=== PATIENT | female | born 1960 | race African-American/Black ===

== ENCOUNTER 2017-11-28 09:51 | Inpatient (IN) | payer SELFPAY ==
[2017-11-28] MEDS ORDERED: CONTRAST GIVEN. MC (10:30)
[2017-11-28 10:32] LABS: BILIRUBIN,URINE NEGATIVE (NEG); CLARITY,URINE CLEAR; COLOR,URINE YELLOW; GLUCOSE,URINE NEGATIVE (NEG); NITRITE,URINE NEGATIVE (NEG); PH,URINE 8.5; PROTEIN,URINE 30 mg/dL (NEG-TRACE); UROBILINOGEN,URINE 0.2 mg/dL (0.2 mg/dL)
[2017-11-28 10:35] LABS: ADD MAN DIFF? NO
[2017-11-28] MEDS: IV NORMAL SALINE 1000ML BAG 1,000 ML IV (10:36)
[2017-11-28] MEDS: ONDANSETRON PF 4 MG/2 ML VIAL. IV ×2 (10:38→16:11)
[2017-11-28] MEDS: MORPHINE SULFATE 4 MG/ML DISP.SYRIN. IV ×3 (10:39→18:16)
[2017-11-28 10:48] LABS: BASO # 0.1 x10^3/uL (0.0-0.2); BASO % 1 % (0-3); EOS % 0 % (0-3); HEMATOCRIT 31.7 % (36.0-47.0); HEMOGLOBIN 10.4 g/dL (12.0-15.5); LYMPH # 0.5 x10^3/uL (1.0-4.8); LYMPH % 9 % (24-48); MEAN CORPUSCULAR HEMOGLOBIN 24 pg (25-35); MEAN CORPUSCULAR HGB CONC 33 g/dL (31-37); MEAN CORPUSCULAR VOLUME 74 fL (79-100); MONO # 0.7 x10^3/uL (0.0-1.1); MONO % 13 % (0-9); NEUT # 3.8 x10^3uL (1.8-7.7); NEUT % 76 % (31-73); RED BLOOD COUNT 4.27 x10^6/uL (3.50-5.40); RED CELL DISTRIBUTION WIDTH 22.1 % (11.5-14.5)
[2017-11-28] MEDS: IOHEXOL 300 MG/ML 100ML VIAL. IV (11:00)
[2017-11-28 11:02] LABS: ANION GAP 6 (6-14); BLOOD UREA NITROGEN 12 mg/dL (7-20); CALCIUM 9.5 mg/dL (8.5-10.1); CARBON DIOXIDE 32 mmol/L (21-32); CHLORIDE 102 mmol/L (98-107); CREATININE 0.9 mg/dL (0.6-1.0); GFR 64.8; GLUCOSE 119 mg/dL (70-99); POTASSIUM 3.8 mmol/L (3.5-5.1); SODIUM 140 mmol/L (136-145)
[2017-11-28 11:06] LABS: PLATELET COUNT 1090 x10^3/uL (140-400)
[2017-11-28 11:08] LABS: ALBUMIN 4.3 g/dL (3.4-5.0); ALK PHOS 89 U/L (46-116); ALT (SGPT) 18 U/L (14-59); AST (SGOT) 17 U/L (15-37); DIRECT BILIRUBIN 0.1 mg/dL (0.0-0.2); LIPASE 178 U/L (73-393); TOTAL BILIRUBIN 0.3 mg/dL (0.2-1.0); TOTAL PROTEIN 8.2 g/dL (6.4-8.2)
[2017-11-28 11:09] LABS: SQUAMOUS EPITHELIAL CELL,UR MOD /LPF
[2017-11-28 11:10] LABS: BACTERIA,URINE FEW /HPF (0-FEW); RBC,URINE 0 /HPF (0-2); WBC,URINE OCC /HPF (0-4)
[2017-11-28 11:34] LABS: TROPONINI < 0.017 ng/mL (0.000-0.055)
[2017-11-28] MEDS: fentaNYL PF VIAL 100 MCG/2 ML VIAL IV (12:28)
[2017-11-28] MEDS: IV RINGERS,LACTATED 1000ML 1,000 ML IV (16:04)
[2017-11-28] MEDS: cefTRIAXone IV Push 1 GM VIAL. IVP (17:04)
[2017-11-28] MEDS ORDERED: PROCHLORPERAZINE 10 MG/2 ML VIAL. IM (18:15)
[2017-11-29] MEDS: ONDANSETRON PF 4 MG/2 ML VIAL. IV (03:46)
[2017-11-29] MEDS: MORPHINE SULFATE 4 MG/ML DISP.SYRIN. IV ×2 (03:46→06:21)
[2017-11-29 04:04] LABS: ADD MAN DIFF? NO
[2017-11-29 04:18] LABS: BASO # 0.1 x10^3/uL (0.0-0.2); BASO % 1 % (0-3); EOS % 0 % (0-3); HEMOGLOBIN 9.5 g/dL (12.0-15.5); LYMPH # 0.4 x10^3/uL (1.0-4.8); LYMPH % 6 % (24-48); MEAN CORPUSCULAR HEMOGLOBIN 25 pg (25-35); MEAN CORPUSCULAR HGB CONC 34 g/dL (31-37); MEAN CORPUSCULAR VOLUME 74 fL (79-100); MONO # 0.8 x10^3/uL (0.0-1.1); MONO % 11 % (0-9); NEUT % 83 % (31-73); PLATELET COUNT 894 x10^3/uL (140-400); RED BLOOD COUNT 3.79 x10^6/uL (3.50-5.40); RED CELL DISTRIBUTION WIDTH 21.5 % (11.5-14.5); WHITE BLOOD COUNT 7.2 x10^3/uL (4.0-11.0)
[2017-11-29 05:16] LABS: ALBUMIN 3.4 g/dL (3.4-5.0); ALBUMIN/GLOBULIN RATIO 0.9 (1.0-1.7); ALK PHOS 80 U/L (46-116); ALT (SGPT) 22 U/L (14-59); ANION GAP 5 (6-14); AST (SGOT) 20 U/L (15-37); BLOOD UREA NITROGEN 11 mg/dL (7-20); BUN/CREATININE RATIO 14 (6-20); CALCIUM 8.8 mg/dL (8.5-10.1); CARBON DIOXIDE 31 mmol/L (21-32); CHLORIDE 104 mmol/L (98-107); CREATININE 0.8 mg/dL (0.6-1.0); GFR 89.8; GLUCOSE 120 mg/dL (70-99); POTASSIUM 4.2 mmol/L (3.5-5.1); SODIUM 140 mmol/L (136-145); TOTAL BILIRUBIN 0.3 mg/dL (0.2-1.0); TOTAL PROTEIN 7.1 g/dL (6.4-8.2)
[2017-11-29] MEDS ORDERED: SURGICEL HEMOSTAT 2X3 EACH. (06:21)
[2017-11-29] MEDS: PROCHLORPERAZINE 10 MG/2 ML VIAL. IV (08:50)
[2017-11-29] MEDS ORDERED: ROCURONIUM 50 MG/5 ML VIAL. (09:20)
[2017-11-29] MEDS ORDERED: SEVOFLURANE 61 TO 120 MINUTES. IH (09:21)
[2017-11-29] MEDS ORDERED: KETOROLAC 30 MG/ML INJ FOR OR. INJ (09:21)
[2017-11-29] MEDS ORDERED: DEXAMETHASONE SOD PHOS 20 MG/5 ML VIAL. (09:21)
[2017-11-29] MEDS ORDERED: fentaNYL PF VIAL 100 MCG/2 ML VIAL ×2 (09:21→12:51)
[2017-11-29] MEDS ORDERED: PROPOFOL 20 ML IV (09:21)
[2017-11-29] MEDS ORDERED: ONDANSETRON PF 4 MG/2 ML VIAL. (09:21)
[2017-11-29] MEDS: IV RINGERS,LACTATED 1000ML 1,000 ML IV ×3 (09:24→23:00)
[2017-11-29] MEDS ORDERED: MORPHINE SULFATE 2 MG/ML DISP.SYRIN. IV (09:30)
[2017-11-29] MEDS ORDERED: ONDANSETRON PF 4 MG/2 ML VIAL. IV ×2 (09:30→11:45)
[2017-11-29] MEDS ORDERED: PROCHLORPERAZINE 10 MG/2 ML VIAL. IV (09:30)
[2017-11-29] MEDS ORDERED: fentaNYL PF VIAL 100 MCG/2 ML VIAL IV (09:30)
[2017-11-29] MEDS ORDERED: LIDOCAINE 1% PF 2 ML VIAL. ID (09:30)
[2017-11-29] MEDS ORDERED: NEOSTIGMINE METHYLSULFATE 5 MG/5 ML SYRINGE. (10:00)
[2017-11-29] MEDS ORDERED: GLYCOPYRROLATE 1 MG/5 ML VIAL. ×2 (10:01→12:35)
[2017-11-29] MEDS: HEPARIN 1,000 UNIT in IV NORMAL SALINE 1,000 ML for SURG PERIOP IRR (10:50)
[2017-11-29] MEDS: BUPIVACAINE-EPI 0.5%-1:200000 50 ML VIAL. (10:50)
[2017-11-29] MEDS: IOHEXOL 300 MG/ML 100ML VIAL. (11:11)
[2017-11-29] MEDS: BISACODYL 10 MG SUPP.RECT. (11:37)
[2017-11-29] MEDS ORDERED: SUCCINYLCHOLINE 200 MG/10 ML VIAL. (11:39)
[2017-11-29] MEDS ORDERED: DEXTROSE 50% 25 GM / 50ML DISP.SYRIN. IV (11:45)
[2017-11-29] MEDS ORDERED: 0.9 % SODIUM CHLORIDE 10 ML DISP.SYRIN. IV (11:45)
[2017-11-29] MEDS ORDERED: NEOSTIGMINE 10 MG/10 ML VIAL. (12:35)
[2017-11-29] MEDS ORDERED: PHENYLEPHRINE in 0.9% NACL PF 1 MG/10 ML SYRINGE. IV (12:46)
[2017-11-29] MEDS: fentaNYL PF VIAL 100 MCG/2 ML VIAL IV ×3 (12:55→19:32)
[2017-11-29] MEDS: HYDROcodone/APAP 5/325MG 1 TAB TABLET PO ×2 (14:17→18:07)
[2017-11-29] MEDS: KETOROLAC 15 MG/ML VIAL. IV (17:57)
[2017-11-29] MEDS: cefTRIAXone IV Push 1 GM VIAL. IVP (18:07)
[2017-11-29] MEDS: DOCUSATE SODIUM 100 MG CAPSULE. PO (19:45)
[2017-11-30] MEDS: fentaNYL PF VIAL 100 MCG/2 ML VIAL IV ×6 (04:31→23:19)
[2017-11-30] MEDS: oxyCODONE/APAP 5/325 1 TAB TABLET PO ×2 (04:52→09:27)
[2017-11-30 05:35] LABS: ALBUMIN 3.2 g/dL (3.4-5.0); ALBUMIN/GLOBULIN RATIO 0.9 (1.0-1.7); ALK PHOS 75 U/L (46-116); ALT (SGPT) 36 U/L (14-59); ANION GAP 7 (6-14); AST (SGOT) 35 U/L (15-37); BLOOD UREA NITROGEN 10 mg/dL (7-20); BUN/CREATININE RATIO 11 (6-20); CALCIUM 8.4 mg/dL (8.5-10.1); CARBON DIOXIDE 29 mmol/L (21-32); CHLORIDE 102 mmol/L (98-107); CREATININE 0.9 mg/dL (0.6-1.0); GFR 78.4; GLUCOSE 113 mg/dL (70-99); POTASSIUM 4.2 mmol/L (3.5-5.1); SODIUM 138 mmol/L (136-145); TOTAL BILIRUBIN 0.3 mg/dL (0.2-1.0); TOTAL PROTEIN 6.6 g/dL (6.4-8.2)
[2017-11-30 05:39] LABS: BASO % 1 % (0-3); EOS % 0 % (0-3); HEMATOCRIT 25.8 % (36.0-47.0); HEMOGLOBIN 8.6 g/dL (12.0-15.5); LYMPH # 0.3 x10^3/uL (1.0-4.8); LYMPH % 3 % (24-48); MEAN CORPUSCULAR HEMOGLOBIN 25 pg (25-35); MEAN CORPUSCULAR HGB CONC 34 g/dL (31-37); MEAN CORPUSCULAR VOLUME 75 fL (79-100); MONO # 0.8 x10^3/uL (0.0-1.1); MONO % 9 % (0-9); NEUT # 7.4 x10^3uL (1.8-7.7); NEUT % 87 % (31-73); RED BLOOD COUNT 3.43 x10^6/uL (3.50-5.40); WHITE BLOOD COUNT 8.5 x10^3/uL (4.0-11.0)
[2017-11-30 05:41] LABS: PLATELET COUNT 915 x10^3/uL (140-400)
[2017-11-30 05:42] LABS: ADD MAN DIFF? YES
[2017-11-30 05:43] LABS: % SAT IRON 15 % (15-34); IRON,SERUM 35 ug/dL (50-170)
[2017-11-30 08:33] LABS: FERRITIN 105 ng/mL (8-252)
[2017-11-30 08:37] LABS: RETIC COUNT 1.1 % (0.5-2.5)
[2017-11-30] MEDS: IV RINGERS,LACTATED 1000ML 1,000 ML IV ×2 (09:00→19:00)
[2017-11-30 09:12] LABS: % BANDS 1 % (0-9); % LYMPHS 10 % (24-48); % MONOS 4 % (0-10); % SEGS 85 % (35-66); PLT ESTIMATE INCREASED (ADEQUATE)
[2017-11-30 09:13] LABS: ANISOCYTOSIS PRESENT
[2017-11-30] MEDS: DOCUSATE SODIUM 100 MG CAPSULE. PO ×2 (09:26→21:11)
[2017-11-30] MEDS: ONDANSETRON PF 4 MG/2 ML VIAL. IV (13:05)
[2017-11-30] MEDS: cefTRIAXone IV Push 1 GM VIAL. IVP (17:30)
[2017-12-01] MEDS: IV RINGERS,LACTATED 1000ML 1,000 ML IV ×3 (03:30→19:50)
[2017-12-01] MEDS: HYDROcodone/APAP 5/325MG 1 TAB TABLET PO (04:34)
[2017-12-01] MEDS: ONDANSETRON PF 4 MG/2 ML VIAL. IV ×2 (08:24→15:24)
[2017-12-01] MEDS: fentaNYL PF VIAL 100 MCG/2 ML VIAL IV ×4 (08:30→23:52)
[2017-12-01] MEDS: DOCUSATE SODIUM 100 MG CAPSULE. PO ×2 (08:30→20:55)
[2017-12-01 09:28] LABS: ADD MAN DIFF? NO
[2017-12-01 09:37] LABS: BASO % 1 % (0-3); EOS % 0 % (0-3); HEMATOCRIT 24.4 % (36.0-47.0); HEMOGLOBIN 8.3 g/dL (12.0-15.5); LYMPH # 2.6 x10^3/uL (1.0-4.8); LYMPH % 61 % (24-48); MEAN CORPUSCULAR HEMOGLOBIN 25 pg (25-35); MEAN CORPUSCULAR HGB CONC 34 g/dL (31-37); MEAN CORPUSCULAR VOLUME 73 fL (79-100); MONO # 0.2 x10^3/uL (0.0-1.1); MONO % 5 % (0-9); NEUT # 1.5 x10^3uL (1.8-7.7); NEUT % 34 % (31-73); PLATELET COUNT 881 x10^3/uL (140-400); RED BLOOD COUNT 3.32 x10^6/uL (3.50-5.40); RED CELL DISTRIBUTION WIDTH 20.8 % (11.5-14.5); WHITE BLOOD COUNT 4.4 x10^3/uL (4.0-11.0)
[2017-12-01] MEDS: cefTRIAXone IV Push 1 GM VIAL. IVP (17:16)
[2017-12-01] MEDS: ENOXAPARIN 40 MG/0.4 ML SYRINGE. SQ (20:56)
[2017-12-01] MEDS: LACTOBACILLUS RHAMNOSUS GG 1 CAPSULE. PO ×2 (21:00→21:18)
[2017-12-02] MEDS: fentaNYL PF VIAL 100 MCG/2 ML VIAL IV (05:16)
[2017-12-02] MEDS: IV RINGERS,LACTATED 1000ML 1,000 ML IV ×2 (05:25→15:12)
[2017-12-02] MEDS: LACTOBACILLUS RHAMNOSUS GG 1 CAPSULE. PO ×2 (08:31→21:15)
[2017-12-02] MEDS: DOCUSATE SODIUM 100 MG CAPSULE. PO ×2 (08:31→21:15)
[2017-12-02] MEDS: oxyCODONE/APAP 5/325 1 TAB TABLET PO ×3 (08:31→19:39)
[2017-12-02] MEDS: KETOROLAC 15 MG/ML VIAL. IV ×2 (08:31→15:04)
[2017-12-02] MEDS: ACETAMINOPHEN 500 MG TABLET PO (08:31)
[2017-12-02] MEDS: ONDANSETRON PF 4 MG/2 ML VIAL. IV ×2 (15:05→21:16)
[2017-12-02] MEDS: cefTRIAXone IV Push 1 GM VIAL. IVP (17:15)
[2017-12-02] MEDS: ENOXAPARIN 40 MG/0.4 ML SYRINGE. SQ (21:17)
[2017-12-03] MEDS: IV RINGERS,LACTATED 1000ML 1,000 ML IV ×2 (02:01→17:00)
[2017-12-03] MEDS: HYDROcodone/APAP 5/325MG 1 TAB TABLET PO ×4 (02:01→20:53)
[2017-12-03] MEDS: DOCUSATE SODIUM 100 MG CAPSULE. PO ×2 (08:43→20:52)
[2017-12-03] MEDS: LACTOBACILLUS RHAMNOSUS GG 1 CAPSULE. PO ×2 (08:43→20:53)
[2017-12-03] MEDS: KETOROLAC 15 MG/ML VIAL. IV ×2 (08:45→15:26)
[2017-12-03] MEDS: BISACODYL 10 MG SUPP.RECT. PR (15:25)
[2017-12-03] MEDS: cefTRIAXone IV Push 1 GM VIAL. IVP (17:19)
[2017-12-03] MEDS: ENOXAPARIN 40 MG/0.4 ML SYRINGE. SQ (20:54)
[2017-12-04] MEDS: HYDROcodone/APAP 5/325MG 1 TAB TABLET PO ×3 (00:54→16:47)
[2017-12-04] MEDS: ACETAMINOPHEN 500 MG TABLET PO (03:16)
[2017-12-04] MEDS: LACTOBACILLUS RHAMNOSUS GG 1 CAPSULE. PO (08:20)
[2017-12-04] MEDS: DOCUSATE SODIUM 100 MG CAPSULE. PO (08:20)
[2017-12-04] MEDS ORDERED: MAGNESIUM HYDROXIDE 2,400 MG/30 ML ORAL.SUSP. PO (09:15)
[2017-12-04] MEDS ORDERED: BISACODYL 5 MG TABLET.DR. PO (09:15)
[2017-12-04 09:39] LABS: PLATELET COUNT 861 x10^3/uL (140-400)
[2017-12-04 10:11] LABS: INR 1.1 (0.8-1.1); PROTHROMBIN TIME PATIENT 13.9 SEC (11.7-14.0)
[2017-12-04] MEDS: MAGNESIUM HYDROXIDE 2,400 MG/30 ML ORAL.SUSP. PO (10:27)
[2017-12-04] MEDS: BISACODYL 10 MG SUPP.RECT. PR (10:28)
== END 2017-12-04 17:00 | disposition home or self-care (01) | DRG 419 ==
LOC: ER 09:51 → 4 NORTH 13:50
PROC: 0FT44ZZ Resection of Gallbladder, Percutaneous Endoscopic Approach (ICD-10-PCS; principal; 2017-11-29 10:17)
PROC: BF141ZZ Fluoroscopy of Gallbladder, Bile Ducts and Pancreatic Ducts using Low Osmolar Contrast (ICD-10-PCS; 2017-11-29 10:17)
PROC: 0FC84ZZ Extirpation of Matter from Cystic Duct, Percutaneous Endoscopic Approach (ICD-10-PCS; 2017-11-29 10:17)
DX: K80.67 Calculus of gallbladder and bile duct with acute and chronic cholecystitis with obstruction (principal); D25.9 Leiomyoma of uterus, unspecified; D50.9 Iron deficiency anemia, unspecified; Z82.49 Family history of ischemic heart disease and other diseases of the circulatory system; Z80.0 Family history of malignant neoplasm of digestive organs; Z80.8 Family history of malignant neoplasm of other organs or systems
CPT/HCPCS: 36415; 74177; 74300; 76705; 76830; 76856; 80048; 80053; 80076; 81001; 81270; 82728; 83540; 83550; 83690; 84484; 85007; 85025; 85045; 85049; 85610; 88304; 93005; 96365; 96374; 96375; 99285; 99285-25; J0330; J0690; J0696; J0780; J1100; J1644; J1650; J1885; J2270; J2370; J2405; J2704; J2710; J3010; J3490; J7030; J7120; Q9967

== ENCOUNTER → 2017-12-30 | Outpatient (CLI) | payer SELFPAY ==
[2017-12-04 11:18] VITALS: BP 120/57
[~2017-12-30] MED LIST: CONTRAST GIVEN. MC PRN; DOCU-109 PO; IOHEXOL 240 MG/ML 50ML VIAL. PO ONE; IOHEXOL 300 MG/ML 100ML VIAL. IV ONE; OXYC1TAB7 PO
--- NOTE | 2017-12-30 15:12 | RAD ---
EXAM: CT Chest, Abdomen and Pelvis with IV contrast CLINICAL HISTORY: RESTAGING GB CA CHOLECYSTECTOMY 11/29/17 INJ 75ML [facility] PREV SENT COMPARISON: None. TECHNIQUE: Helical CT of the chest, abdomen and pelvis was performed following the administration of intravenous contrast. Oral contrast was administered. Axial, coronal and sagittal reformatted images were generated. ---PQRS compliance statement - One or more of the following individualized dose reduction techniques were utilized for this study: 1. Automated exposure control 2. Adjustment of the mA and/or kV according to patient size 3. Use of iterative reconstruction technique--- FINDINGS: Chest: The heart is not enlarged. No pericardial effusion. No mediastinal or hilar lymphadenopathy. No axillary lymphadenopathy. No pleural effusion or pneumothorax. Minimal left lower lobe subpleural opacity likely atelectasis/scarring. No lobar consolidation. No suspicious lung nodule or mass. Abdomen and Pelvis: No focal liver lesion. There has been a cholecystectomy. Mildly prominent intrahepatic biliary ductal dilatation. The common bile duct measures 7 mm, normal in this patient postcholecystectomy. A 2.1 cm heterogeneously hypodense structure is seen in the gallbladder fossa measuring approximately 40 Hounsfield units, possibly residual seroma/hematoma given recent procedure. Spleen is unremarkable. Adrenal glands are normal. Pancreas is unremarkable. Symmetric nephrograms. No focal renal lesion. No hydronephrosis. No abdominal or pelvic lymphadenopathy, although a mildly prominent gastrohepatic ligament lymph node is seen measuring 6 mm in short axis. The appendix is normal. No small or large bowel dilatation to suggest bowel obstruction. Oral contrast material is seen to the level of the distal small bowel. Moderate colonic stool content. Heterogeneous appearance of the uterus, likely uterine fibroids. No abdominal ascites. Trace free pelvic fluid. Bones: Degenerative changes of the spine and symphysis pubis are seen. Sclerotic focus within the right sacrum likely a bone island. IMPRESSION: 1. No thoracic, abdominal or pelvic lymphadenopathy, although a mildly prominent gastrohepatic ligament lymph node is incidentally seen. 2. There has been a cholecystectomy. Heterogeneous soft tissue density is seen within the gallbladder fossa, favored to represent postsurgical seroma/hematoma. Alternatively residual soft tissue mass is not entirely excluded, but is felt to be unlikely. Recommend close attention on follow-up or sonographic evaluation. Electronically signed by: Kam Perez MD (12/30/2017 3:09 PM) [id number]
== END | disposition home or self-care (01) ==
LOC: CT 08:48
PROVIDERS: ATTEND Surgery
DX: K80.10 Calculus of gallbladder with chronic cholecystitis without obstruction (principal); D50.9 Iron deficiency anemia, unspecified; Z82.49 Family history of ischemic heart disease and other diseases of the circulatory system; Z80.8 Family history of malignant neoplasm of other organs or systems; Z80.0 Family history of malignant neoplasm of digestive organs
CPT/HCPCS: 71260; 74177; Q9966; Q9967